=== PATIENT | male | born 1975 | race Caucasian/White ===

== ENCOUNTER 2016-08-13 21:51 | Emergency (ER) | payer BC ==
[~2016-08-13] VITALS: Ht 162.6 cm; Wt 81.6 kg
[2016-08-13 21:51] VITALS: BP 147/92; PULSE 84; RESP 20; TEMP 97.7; O2SAT 100
--- NOTE | 2016-08-13 22:00 | NUR ---
Patient to ER bed 01 to gown for evaluation. Side rails up. Report given to DAO Gamboa.
--- NOTE | 2016-08-13 22:00 | NUR ---
Patient thinks he has a chicken bone stuck in his throat. NO s/s of distress.
--- NOTE | 2016-08-13 22:30 | NUR ---
ER at bedside examining patient.
--- NOTE | 2016-08-14 00:10 | NUR ---
Patient given written and verbal discharge instructions and verbalizes understanding. ER MD discussed with patient the results and treatment provided. Patient in stable condition. ID arm band removed. Patient educated on pain management and to follow up with PMD. Pain Scale 0/10. Opportunity for questions provided and answered.
[2016-08-14 00:15] VITALS: BP 135/86; PULSE 78; RESP 18; TEMP 98; O2SAT 100
== END 2016-08-14 00:15 | disposition home or self-care (01) ==
LOC: SED 21:51
DX: S27.818A Other injury of esophagus (thoracic part), initial encounter (principal); I10 Essential (primary) hypertension; X58.XXXA Exposure to other specified factors, initial encounter; Y93.89 Activity, other specified; Y92.89 Other specified places as the place of occurrence of the external cause; Y99.8 Other external cause status
CPT/HCPCS: 70490; 99284